=== PATIENT | female | born 1950 | race Caucasian/White ===

== ENCOUNTER 2022-01-18 12:27 | Observation (INO) | payer MEDICARE, SELFPAY ==
[2022-01-18] VITALS (10 sets, daily range): BP systolic 184–206; BP diastolic 70–95; PULSE 67–79; RESP 15–42; TEMP 36.4–36.8; O2SAT 96–100; BMI 35.5
--- NOTE | 2022-01-18 12:41 | DI.CT.S_ITS ---
PROCEDURE: CT STROKE INDICATIONS: left hand weakness and facial droop TECHNIQUE: Noncontrast 4.5 mm thick angled axial sections acquired from the foramen magnum to the vertex, with coronal reformats. For radiation dose reduction, the following was used: automated exposure control, adjustment of mA and/or kV according to patient size. COMPARISON: None. FINDINGS: Image quality: Excellent. CSF spaces: Basal cisterns are patent. No extra-axial fluid collections. The ventricles are symmetric in size and shape. Brain: No intracranial bleeds or masses. There is cerebral volume loss for age, with resultant ventricular and sulcal prominence. There are periventricular and deep white matter chronic small vessel ischemic changes. There is intracranial internal carotid artery atherosclerosis. Skull and face: Calvarium and visualized facial bones appear intact, without suspicious lesions. Sinuses: There is complete opacification of the right maxillary sinus. Scattered ethmoid sinus mucosal thickening. Remainder of the paranasal sinuses appear clear. Mastoid air cells are well-aerated. IMPRESSION: 1. CT head without acute intracranial abnormalities or acute calvarial fractures. 2. Age-related senescent changes and sequela of chronic small vessel ischemic disease. 3. Right maxillary and scattered ethmoid sinus disease. Findings were discussed telephonically with Dr. Galicia at 1250hrs PST This study fulfills neurological imaging criteria for inclusion or exclusion of acute stroke therapies based on available published neurological guidelines. Dictated by: Hussein Meyer M.D. on 01/18/2022 at 12:47 Approved by: Hussein Meyer M.D. on 01/18/2022 at 12:50
--- NOTE | 2022-01-18 12:50 | DI.CT.S_ITS ---
PROCEDURE: CT ANGIO HEAD AND NECK INDICATIONS: left hand weakness and facial droop TECHNIQUE: After the administration of intravenous contrast, 1 mm thick sections acquired from the aortic arch through the [place]. Post-contrast 4.5 mm thick sections then re-acquired from the foramen magnum to the vertex. 3-dimensional nxzdtiu-iffofemoq-oprkjgcrfl (MIP) and/or volume rendering reformats were acquired of the central intracranial vasculature and neck separately. For radiation dose reduction, the following was used: automated exposure control, adjustment of mA and/or kV according to patient size. COMPARISON: [facility], CT, CT STROKE, 01/18/2022, 12:43. FINDINGS: Image quality: Excellent. BRAIN: The ventricular system and cortical sulci demonstrate atrophy, consistent for the patient's stated age. There are areas of hypodensity within the periventricular and subcortical white matter. There is no acute intra-or extra axial fluid collection. No acute hemorrhage, mass lesion or midline shift. Brainstem is unremarkable. Globes are symmetrical. Sinuses demonstrate occlusion of the right maxillary sinus. Osseous structures are intact. HEAD CT ANGIOGRAPHY: Anterior circulation: Intracranial internal carotid arteries are normal in size and flow. The flow within the paired anterior cerebral arteries is normal and symmetric. The flow within the middle cerebral arteries is normal and symmetric. The anterior communicating artery is seen. No aneurysms are seen. Posterior circulation: There is a slight left vertebral artery dominance. Visualized portions of the vertebral arteries join to form a normal appearing basilar artery. Calcifications are noted within the V4 segment of the vertebral arteries bilaterally with approximate 50% stenosis. Flow within the posterior cerebral arteries is normal and symmetric. No aneurysms are seen. NECK CT ANGIOGRAPHY: The origins of the left and right common and external carotid arteries demonstrate no areas of hemodynamically significant stenosis, vascular occlusion or aneurysmal dilation. There is approximately 40-50% narrowing at the origin of the left internal carotid artery. Origins of the left and right vertebral arteries demonstrate no areas of hemodynamically significant stenosis, vascular occlusion or aneurysmal dilation. Aortic arch demonstrates conventional anatomy. Limited, visualized portions of the subclavian vasculature are unremarkable. The right thyroid lobe is markedly enlarged with areas of low attenuation and calcification. No priors are available for comparison. IMPRESSION: 1. No acute intracranial process. 2. Moderate atrophy and chronic microvascular ischemic changes. 3. No areas of hemodynamically significant stenosis, vascular occlusion or aneurysmal dilation within the anterior circulation. 4. Approximate 50% narrowing in the V4 segment of the vertebral arteries bilaterally secondary to scattered calcifications. 5. 40-50% narrowing at the origin of the left internal carotid artery. 6. Enlargement heterogeneous appearance of the right thyroid lobe. No priors are available for comparison. Thyroid ultrasound is recommended for further evaluation. Any quantitative measurements of stenosis were performed using NASCET criteria. Dictated by: Carmen Wagner M.D. on 01/18/2022 at 13:29 Approved by: Carmen Wagner M.D. on 01/18/2022 at 13:36
[2022-01-18 13:01] LABS: Add Manual Diff / Slide Review NO; Basophils Absolute Auto 100 /uL (0-100); Basophils Percent Auto 1.1 % (0-2); Eosinophils Absolute Auto 100 /uL (0-450); Eosinophils Percent Auto 1.3 % (2-4); Hematocrit 39.1 % (36-46); Hemoglobin 12.7 g/dL (12.0-16.0); Lymphocytes Absolute Auto 3000 /uL (1100-4500); Lymphocytes Percent Auto 31.6 % (25-40); Mean Corpuscular HGB Conc 32.5 % (30-36); Mean Corpuscular Hemoglobin 28.3 PG (26-34); Monocytes Absolute Auto 700 /uL (0-900); Monocytes Percent Auto 6.9 % (3-14); Neutrophils Absolute Auto 5700 /uL (1500-7000); Neutrophils Percent Auto 59.1 % (50-75); Platelet Count 256 X10^3/uL (150-400); Red Cell Distribution Width 14.2 % (11.6-14.8); White Blood Cell Count 9.6 X10^3/uL (4.5-11.0)
[2022-01-18 13:09] LABS: INR 1.1 (0.9-1.3); Prothrombin Time 12.2 SECONDS (10.1-12.7)
[2022-01-18 13:11] LABS: PTT Partial Thromboplastin Tim 27 SECONDS (26.4-36.2)
--- NOTE | 2022-01-18 14:02 | ED_ITS ---
HPI - Neuro Symptoms/Deficit General Chief Complaint: Neuro Symptoms/Deficit Stated Complaint: SPEECH SLURED/RT. HAND WEAK Time Seen by Provider: 01/18/22 12:38 Source: patient Mode of arrival: Ambulatory History of Present Illness HPI Narrative: Rest pain repair via a 71-year-old female history of hypertension diabetes, TIA presenting today with left-sided hand weakness. She was walking the dog when suddenly she dropped only she was unable to open the door. She had a slight headache as well. No facial droop or difficulty speaking. No leg weakness. Last known well was 1145. Related Data Home Medications Medication Instructions Recorded Confirmed atorvastatin 40 mg tablet 40 mg PO BEDTIME cholesterol 01/18/22 01/18/22 glimepiride 2 mg tablet 2 mg PO DAILY blood sugar control 01/18/22 01/18/22 lisinopril 30 mg tablet 30 mg PO DAILY blood pressure 01/18/22 01/18/22 metformin 1,000 mg tablet 1,000 mg PO BID 01/18/22 01/18/22 sertraline 25 mg tablet 25 mg PO DAILY anxiety 01/18/22 01/18/22 spironolactone 25 mg tablet 25 mg PO DAILY blood pressure 01/18/22 01/18/22 Allergies Allergy/AdvReac Type Severity Reaction Status Date / Time No Known Drug Allergies Allergy Verified 01/18/22 12:35 Review of Systems Review of Systems Narrative: GENERAL: Denies chills, fatigue, malaise, fever, sweats, travel HEENT: Denies sinus pain, ear pain, sore throat, difficulty swallowing, neck pain RESPIRATORY: Denies dyspnea, cough, wheezing, hemoptysis, sputum. CARDIOVASCULAR: Denies chest pain, palpitations, orthopnea, edema GASTROINTESTINAL: Denies nausea, vomiting, abdominal pain, diarrhea, constipation, melena. : Denies dysuria, frequency, incontinence, hematuria, urinary retention, flank pain. MUSCULOSKELETAL: Denies weakness, joint pain, or bony pain SKIN: No rash, no erythema, no pruritus NEUROLOGIC: See HPI PSYCHIATRIC: No concerning psychosocial issues. 12 point review of systems is negative except for those stated above and HPI Patient History Medical History Depression Diabetes mellitus (~2011) Endometrial cancer (~2007) Hypercholesteremia Hypertension Melanoma (~2014) Neuropathy Surgical History H/O: hysterectomy History of left hip replacement (~2008) Family History (Updated 01/18/22 @ 18:33 by Simon Singh DO) Mother Cancer Father Cancer Brother CVA (cerebral vascular accident) Social History household members: spouse Smoking Status: Never smoker alcohol intake: current Smoking Status: Unknown if ever smoked alcohol intake frequency: holidays/special occasions only Substance Use Type: does not use Exam Initial Vital Signs Initial Vital Signs: Vital Signs Temperature 97.7 F 01/18/22 12:34 Pulse Rate 79 01/18/22 12:34 Respiratory Rate 15 01/18/22 12:34 Blood Pressure 197/95 H 01/18/22 12:34 Pulse Oximetry 97 01/18/22 12:34 Oxygen Delivery Method 01/18/22 12:34 GENERAL: Alert pleasant 71-year-old female and in no acute distress. HEENT: Head atraumatic,EOMI, pupils reactive, face symmetric, moist mucous membranes CARDIOVASCULAR: Regular rate and rhythm without murmurs, rubs or gallops. RESPIRATORY: Breath sounds equal bilaterally, no wheezes rales or rhonchi. ABDOMEN: Soft, nontender. Normoactive bowel sounds all 4 quadrants. No g uarding or rebound. EXTREMITIES: Normal range of motion, no clubbing or edema. Neurovascularly inta ct NEUROLOGICAL: Alert and oriented x4.Normal gait and speech. Boats Renter strength he will bilaterally good mselot-jf-fojy no dysarthria or aphasia SKIN: Warm, dry, no laceration, no petechiae, no rashes or lesions. Scores NIH Stroke Scale Level of Conciousness: Alert, keenly responsive Ask month/age: Answers both questions correctly. Open/close eyes, close hand: Performs both tasks correctly Best gaze horizontal: Normal Visual sosa: No visual loss Facial palsy: Normal symetrical movement Left arm drift: No drift for full 10 sec Right arm drift: No drift for full 10 sec Left leg drift: No drift for full 5 sec Right leg drift: No drift for full 5 sec Limb ataxia: Absent Sensory on face/arms/legs: Normal, no sensory loss Best language: No aphasia, normal Dysarthria: Normal Extinction or inattention: No abnormality Total NIH Stroke scale score: 0 Course Orders Ordered: ED Orders 01/18/22 12:41 CT Stroke Stat 01/18/22 12:50 CT angio head and neck Stat 01/18/22 12:58 Complete Blood Count AUTO DIFF Stat Comprehensive Metabolic Panel Stat Partial Thromboplastin Time Stat Prothrombin Time INR Stat Troponin & CK Cardiac Panel Stat 01/18/22 14:12 Urine Drug Screen, Rapid Stat 01/18/22 14:21 EKG-12 Lead Stat Acetaminophen (Acetaminophen 325 Mg Tablet) 975 mg PO Q8H PRN PRN Reason: Pain, Mild (1-3) Amlodipine Besylate (Amlodipine 5 Mg Tablet) 10 mg PO NOW ONE Stop: 01/18/22 19:34 Amlodipine Besylate (Amlodipine 5 Mg Tablet) 10 mg PO DAILY [facility] Aspirin (Aspirin Ec 81 Mg Tablet) 81 mg PO DAILY [facility] Atorvastatin Calcium (Atorvastatin 20 Mg Tablet) 40 mg PO BEDTIME [facility] Clopidogrel Bisulfate (Clopidogrel 75 Mg Tablet) 300 mg PO NOW ONE Stop: 01/18/22 19:34 Clopidogrel Bisulfate (Clopidogrel 75 Mg Tablet) 75 mg PO DAILY [facility] Dextrose (Dextrose 50 % In Water 25 Gm/50 Ml Syringe) 25 gm IV PRN PRN PRN Reason: Hypoglycemia Insulin Human Lispro (Insulin Lispro 100 Unit/Ml 3ml Vial) 0 unit SUBCUT ACHS CLEM; Protocol Lisinopril (Lisinopril 10 Mg Tablet) 30 mg PO DAILY [facility] Ondansetron HCl (Ondansetron 4 Mg/2 Ml Inj) 4 mg IV Q8HR PRN PRN Reason: Nausea And Vomiting Sertraline HCl (Sertraline 50 Mg Tablet) 25 mg PO DAILY [facility] Sodium Chloride (Sodium Chloride 0.9% Flush) 10 ml IV PRN PRN PRN Reason: Flush Sodium Chloride (Sodium Chloride 0.9% Flush) 10 ml IV BID [facility] Spironolactone (Spironolactone 25 Mg Tablet) 25 mg PO DAILY [facility] Discontinued Medications Aspirin (Aspirin 81 Mg Chew Tab) 324 mg PO NOW ONE Stop: 01/18/22 14:20 Last Admin: 01/18/22 14:38 Dose: 324 mg Documented By: NR Sodium Chloride (Normal Saline 0.9%) 1,000 mls @ 150 mls/hr IV CONT CLEM Last Infusion: 01/18/22 14:49 Dose: 0 mls/hr Documented By: Admin: 01/18/22 14:39 Dose: 150 mls/hr Documented By: LEEANNA Vital Signs Vital signs: Vital Signs - 8 hr 01/18/22 13:20 01/18/22 13:22 01/18/22 13:22 Pulse Rate 70 70 Respiratory Rate 21 26 H Blood Pressure 200/91 H Pulse Oximetry 96 98 01/18/22 13:30 01/18/22 13:30 01/18/22 14:00 Pulse Rate 67 68 Respiratory Rate 27 H 31 H Blood Pressure 201/87 H Pulse Oximetry 96 97 01/18/22 14:05 01/18/22 14:05 Pulse Rate 71 Respiratory Rate 42 H Blood Pressure 192/86 H Pulse Oximetry 97 MDM - Neuro Symptoms/Deficit Lab Data Result diagrams: 01/18/22 12:58 01/18/22 19:10 Labs: Lab Results 01/18/22 01/18/22 01/18/22 Range/Units 12:58 12:58 12:58 WBC 9.6 (4.5-11.0) X10^3/uL RBC 4.50 (4.0-5.2) X10^6/uL Hgb 12.7 (12.0-16.0) g/dL Hct 39.1 (36-46) % MCV 87.0 (80-100) fL MCH 28.3 (26-34) PG MCHC 32.5 (30-36) % RDW 14.2 (11.6-14.8) % Plt Count 256 (150-400) X10^3/uL Neut % (Auto) 59.1 (50-75) % Lymph % (Auto) 31.6 (25-40) % Andrew % (Auto) 6.9 (3-14) % Eos % (Auto) 1.3 L (2-4) % Baso % (Auto) 1.1 (0-2) % Neut # (Auto) 5700 (0334-9557) /uL Lymph # (Auto) 3000 (0213-4761) /uL Andrew # (Auto) 700 (0-900) /uL Eos # (Auto) 100 (0-450) /uL Baso # (Auto) 100 (0-100) /uL PT 12.2 (10.1-12.7) SECONDS INR 1.1 (0.9-1.3) APTT 27 (26.4-36.2) SECONDS Sodium 138 (137-145) mmol/L Potassium TNP Chloride 102 (98-107) mmol/L Carbon Dioxide 25 (22-32) mmol/L BUN 22 H (7-17) mg/dL Creatinine 0.95 (0.52-1.04) mg/dL Estimated GFR > 60 (>60) mL/min BUN/Creatinine Ratio 23.2 H (6-22) Glucose 121 H (80-110) mg/dL Calcium 9.0 (8.4-10.2) mg/dL Total Bilirubin 1.0 (0.2-1.3) mg/dL AST TNP ALT 14 (<35) IU/L Alkaline Phosphatase TNP Total Creatine Kinase 58 (30-135) U/L CK-MB (CK-2) TNP CK-MB (CK-2) Rel Index TNP Troponin I < 0.012 (0.01-0.034) ng/mL Total Protein TNP Albumin 4.3 (3.5-5.0) g/dL Globulin 4.5 H (1.7-4.1) g/dL Albumin/Globulin Ratio 1.0 (1.0-2.8) U Opiates 300ng/mL cut (Negative) Ur Oxycodone Screen (Negative) Urine Methadone Screen (Negative) Ur Barbiturates Screen (Negative) U Tricyclic Antidepress (Negative) Ur Phencyclidine Scrn (Negative) Ur Amphetamines Screen (Negative) U Methamphetamines Scrn (Negative) Ur MDMA Scrn (Ecstasy) (Negative) U Benzodiazepines Scrn (Negative) Urine Cocaine Screen (Negative) U Marijuana (THC) Screen (Negative) 01/18/22 Range/Units 14:12 WBC (4.5-11.0) X10^3/uL RBC (4.0-5.2) X10^6/uL Hgb (12.0-16.0) g/dL Hct (36-46) % MCV (80-100) fL MCH (26-34) PG MCHC (30-36) % RDW (11.6-14.8) % Plt Count (150-400) X10^3/uL Neut % (Auto) (50-75) % Lymph % (Auto) (25-40) % Andrew % (Auto) (3-14) % Eos % (Auto) (2-4) % Baso % (Auto) (0-2) % Neut # (Auto) (2565-3687) /uL Lymph # (Auto) (4024-5500) /uL Andrew # (Auto) (0-900) /uL Eos # (Auto) (0-450) /uL Baso # (Auto) (0-100) /uL PT (10.1-12.7) SECONDS INR (0.9-1.3) APTT (26.4-36.2) SECONDS Sodium (137-145) mmol/L Potassium Chloride (98-107) mmol/L Carbon Dioxide (22-32) mmol/L BUN (7-17) mg/dL Creatinine (0.52-1.04) mg/dL Estimated GFR (>60) mL/min BUN/Creatinine Ratio (6-22) Glucose (80-110) mg/dL Calcium (8.4-10.2) mg/dL Total Bilirubin (0.2-1.3) mg/dL AST ALT (<35) IU/L Alkaline Phosphatase Total Creatine Kinase (30-135) U/L CK-MB (CK-2) CK-MB (CK-2) Rel Index Troponin I (0.01-0.034) ng/mL Total Protein Albumin (3.5-5.0) g/dL Globulin (1.7-4.1) g/dL Albumin/Globulin Ratio (1.0-2.8) U Opiates 300ng/mL cut Negative (Negative) Ur Oxycodone Screen Negative (Negative) Urine Methadone Screen Negative (Negative) Ur Barbiturates Screen Negative (Negative) U Tricyclic Antidepress Negative (Negative) Ur Phencyclidine Scrn Negative (Negative) Ur Amphetamines Screen Negative (Negative) U Methamphetamines Scrn Negative (Negative) Ur MDMA Scrn (Ecstasy) Negative (Negative) U Benzodiazepines Scrn Negative (Negative) Urine Cocaine Screen Negative (Negative) U Marijuana (THC) Screen Negative (Negative) Point of Care Testing Glucose POC [address] scan - head: Radiologist's Impression: [address] [address] [address] Scan Report Signed Patient: Lyndsey Gregg MR#: [id number] : 1950 Acct:[id number] Age/Sex: 71 / F Date of Service: 01/18/22 Loc: ED Accession Number: [id number] ?? Procedure: CT Stroke Ordering Provider: Elida Galicia D.O. PROCEDURE:? CT STROKE ? INDICATIONS:? left hand weakness and facial droop ? TECHNIQUE:? Noncontrast 4.5 mm thick angled axial sections acquired from the foramen magnum to the vertex, with coronal reformats.? For radiation dose reduction, the following was used:? automated exposure control, adjustment of mA and/or kV according to patient size.? ? COMPARISON:? None. ? FINDINGS:? Image quality:? Excellent.? ? CSF spaces:? Basal cisterns are patent.? No extra-axial fluid collections.? The ventricles are symmetric in size and shape.? ? Brain:? No intracranial bleeds or masses.? There is cerebral volume loss for age, with resultant ventricular and sulcal prominence.? There are periventricular and deep white matter chronic small vessel ischemic changes.? There is intracranial internal carotid artery atherosclerosis.? ? Skull and face:? Calvarium and visualized facial bones appear intact, without suspicious lesions.? ? Sinuses:? There is complete opacification of the right maxillary sinus.? Scattered ethmoid sinus mucosal thickening. Remainder of the paranasal sinuses appear clear. Mastoid air cells are well-aerated. ? ? IMPRESSION:? 1. CT head without acute intracranial abnormalities or acute calvarial fractures. ? 2. Age-related senescent changes and sequela of chronic small vessel ischemic disease. ? 3. Right maxillary and scattered ethmoid sinus disease.? ? Findings were discussed telephonically with Dr. Galicia at 1250hrs PST ? This study fulfills neurological imaging criteria for inclusion or exclusion of acute stroke therapies based on available published neurological guidelines.? ? ? Dictated by: Hussein Meyer M.D. on 01/18/2022 at 12:47? CTA - brain/neck: Radiologist's Impression: CT Scan Report Signed Patient: Lyndsey Gregg MR#: [id number] : 1950 Acct:[id number] Age/Sex: 71 / F Date of Service: 01/18/22 Loc: ED Accession Number: [id number] ?? Procedure: CT angio head and neck Ordering Provider: Elida Galicia D.O. PROCEDURE:? CT ANGIO HEAD AND NECK ? INDICATIONS:? left hand weakness and facial droop ? TECHNIQUE:? After the administration of intravenous contrast, 1 mm thick sections acquired from the aortic arch through the [place].? Post-contrast 4.5 mm thick sections then re-acquired from the foramen magnum to the vertex.? 3-dimensional qhpckja-cyznukkhu-wbgxckysog (MIP) and/or volume rendering reformats were acquired of the central intracranial vasculature and neck separately. For radiation dose reduction, the following was used:? automated exposure control, adjustment of mA and/or kV according to patient size.? ? COMPARISON:? [facility], CT, CT STROKE, 01/18/2022, 12:43. ? FINDINGS:? Image quality:? Excellent.? ? BRAIN:? The ventricular system and cortical sulci demonstrate atrophy, consistent for the patient's stated age. There are areas of hypodensity within the periventricular and subcortical white matter.? There is no acute intra-or extra axial fluid collection. No acute hemorrhage, mass lesion or midline shift. Brainstem is unremarkable. Globes are symmetrical. Sinuses demonstrate occlusion of the right maxillary sinus.? Osseous structures are intact. ? HEAD CT ANGIOGRAPHY:? Anterior circulation:? Intracranial internal carotid arteries are normal in size and flow.? The flow within the paired anterior cerebral arteries is normal and symmetric.? The flow within the middle cerebral arteries is normal and symmetric.? The anterior communicating artery is seen.? No aneurysms are seen.? ? Posterior circulation:? There is a slight left vertebral artery dominance.? Visualized portions of the vertebral arteries join to form a normal appearing basilar artery.? Calcifications are noted within the V4 segment of the vertebral arteries bilaterally with approximate 50% stenosis.? Flow within the posterior cerebral arteries is normal and symmetric.? No aneurysms are seen.? ? NECK CT ANGIOGRAPHY:? The origins of the left and right common and external carotid arteries demonstrate no areas of hemodynamically significant stenosis, vascular occlusion or aneurysmal dilation. ?There is approximately 40-50% narrowing at the origin of the left internal carotid artery.? Origins of the left and right vertebral arteries demonstrate no areas of hemodynamically significant stenosis, vascular occlusion or aneurysmal dilation. Aortic arch demonstrates conventional anatomy. Limited, visualized portions of the subclavian vasculature are unremarkable. ? The right thyroid lobe is markedly enlarged with areas of low attenuation and calcification.? No priors are available for comparison. ? IMPRESSION:? ? 1. No acute intracranial process. ? 2. Moderate atrophy and chronic microvascular ischemic changes. ? 3. No areas of hemodynamically significant stenosis, vascular occlusion or aneurysmal dilation within the anterior circulation. ? 4. Approximate 50% narrowing in the V4 segment of the vertebral arteries bilaterally secondary to scattered calcifications.? ? 5. 40-50% narrowing at the origin of the left internal carotid artery. ? 6. Enlargement heterogeneous appearance of the right thyroid lobe.? No priors are available for comparison.? Thyroid ultrasound is recommended for further evaluation.? ? Any quantitative measurements of stenosis were performed using NASCET criteria.? ? ? Dictated by: Carmen Wagner M.D. on 01/18/2022 at 13:29 ? ? ECG Data Interpretation: Normal sinus rhythm rate 69 MT interval 190 QRS [address] changes or T- wave inversions MDM Narrative Medical decision making narrative: Patient's symptoms have improved significantly. She is no longer a tPA candidate. However she does have a history of a TIA she has multiple risk factors symptoms are most concerning for TIA. Dr. Tiwari primary except patient. Discharge Plan Departure Patient Disposition: Admitted as Observation Clinical Impression: Transient cerebral ischemia Admit Date/Time: 01/18/22 14:37 Admit Provider: Simon Singh
[2022-01-18 14:34] LABS: Ur Creatinine Normal (Normal); Ur Specific Gravity Normal (Normal); Urine pH Normal (Normal)
[2022-01-18 14:35] LABS: UR Morphine/Opiate cutoff 300 Negative (Negative); Urine Amphetamines Negative (Negative); Urine Barbiturates Negative (Negative); Urine Benzodiazepines Negative (Negative); Urine Cocaine Negative (Negative); Urine MDMA Negative (Negative); Urine Methadone Negative (Negative); Urine Methamphetamines Negative (Negative); Urine Oxycodone Negative (Negative); Urine Phencyclidine Negative (Negative); Urine Tetrahydrocannabinol Negative (Negative); Urine Tricyclic Antidepressant Negative (Negative)
[2022-01-18] MEDS: ASPIRIN 81 MG CHEW TAB 324 MG PO (14:38)
[2022-01-18] MEDS: SODIUM CHLORIDE 0.9% 1,000 ML 150 ML IV (14:39)
--- NOTE | 2022-01-18 15:17 | DI.MRI.S_ITS ---
PROCEDURE: MR HEAD/BRAIN WO CON INDICATIONS: hand weakness now resolved, poss TIA TECHNIQUE: Non-contrast axial T1 spin echo, axial T2 fast spin echo, sagittal and axial FLAIR, coronal T2 fast spin echo, axial gradient echo, axial diffusion and ADC through the brain. COMPARISON: None. FINDINGS: Image quality: Excellent. CSF spaces: Ventricles appear symmetric in size and shape. Basal cisterns are patent. No extra-axial fluid collections. Brain: No intracranial bleeds or mass effects. There is cerebral volume loss for age. There are periventricular and deep white matter chronic small vessel ischemic changes. Brainstem appears normal. Diffusion-weighted images show no acute ischemic insults. No chronic ischemic insults. Normal intravascular flow voids are present. Skull and face: Calvarial bone marrow is normal in signal. Orbits are normal. Sinuses: The right maxillary sinus has mucosal thickening and is filled with inspissated secretions. The remaining paranasal sinuses are well aerated. IMPRESSION: 1. No acute intracranial abnormality. No acute ischemia. 2. Right maxillary sinus disease with inspissated secretions and mucosal thickening. 3. Cerebral volume loss and small vessel ischemic changes. Dictated by: Santos Garcia M.D. on 01/18/2022 at 16:20 Approved by: Santos Garcia M.D. on 01/18/2022 at 16:24
--- NOTE | 2022-01-18 15:17 | PC.NURSE ---
Addendum entered by Suellen Lewis R.N. 01/18/22 19:42: continuing admission note: patient arrived from ED via stretcher, greeted by this RN and TECHNOLOGY STRATEGIST. patient a/o, able to conversate clearly, denies any problems w/ vision, mobility. patient explained to staff how she was walking her dog earlier today around 11 am and was unable to speak coherantly, and noticed her left cheek under her eye was twitching. her UE was dangling, and all above deficits were resolved by the time she arrived to the ED. she is accompanied by her Mat. they are from [facility], and currently vacationing in their RV. Dr hughes here to admit patient, tele applied. SL, CXR and MRI completed. swallow screen was completed in ED. patient is a diabetic, and her A1c is 7. tele is NSR. ambulates w/ sba to/ from bathroom. bed alarm is on. call light w/in reach. report to NOC. Original Note: admit to room 222 at 1500, dx TIA
[2022-01-18 15:36] LABS: COVID19 -Nasal RAPID Negative (Negative)
--- NOTE | 2022-01-18 18:32 | PM.HP.1 ---
History of Present Illness History of Present Illness Date Patient Seen: 01/18/22 Time Patient Seen: 18:37 Chief complaint: SPEECH SLURED/RT. HAND WEAK Narrative: This is a 71 year old female with PMH of prior TIA, DM, HTN, obesity who presented with sudden onset of L handed weakness that started at approx. 11:45 AM. She is currently staying at an park, visiting from [place]. States that she woke up in her usual state of health and was walking her dog this afternoon when she dropped her dog's leash out of her left hand and could not close it. She also noticed some facial tingling but denied any S and was able to walk. She was walking back to her trailer to grab her while this was occurring, right speaking to him but to him she is not making any actual words and was slurring her speech. This lasted for approximately 20 minutes before her symptoms completely resolved. She denies any recent fever, chills, chest pain, palpitations, shortness of breath, cough, abdominal pain, nausea, vomiting, visual changes, lower extremity edema. In the emergency room, the patient was hypertensive but the remainder of her vital signs were unremarkable. Stroke was called, initial CT of her head was unremarkable and did not show any evidence of hemorrhage. Given resolution of her symptoms tPA was not given. She was admitted for further management and evaluation of probable TIA. Patient History Medical History Depression Diabetes mellitus (~2011) Endometrial cancer (~2007) Hypercholesteremia Hypertension Melanoma (~2014) Neuropathy Surgical History H/O: hysterectomy History of left hip replacement (~2008) Family & Social History Family History (Updated 01/18/22 @ 18:33 by Simon Singh DO) Mother Cancer Father Cancer Brother CVA (cerebral vascular accident) Social History: household members spouse Prior Living Arrangements RV Safety & Behavioral: Feels Safe in Current Yes Environment Been Physically Hurt or No Threatened By a Person Tobacco & Substance use: Smoking Status Never smoker alcohol intake current alcohol intake frequency holiday/special occasion Substance Use Type does not use Meds Home Medications and Allergies Home Medications Medication Instructions Recorded Confirmed Type atorvastatin 40 mg tablet 40 mg PO BEDTIME cholesterol 01/18/22 01/18/22 History glimepiride 2 mg tablet 2 mg PO DAILY blood sugar control 01/18/22 01/18/22 History lisinopril 30 mg tablet 30 mg PO DAILY blood pressure 01/18/22 01/18/22 History metformin 1,000 mg tablet 1,000 mg PO BID 01/18/22 01/18/22 History sertraline 25 mg tablet 25 mg PO DAILY anxiety 01/18/22 01/18/22 History spironolactone 25 mg tablet 25 mg PO DAILY blood pressure 01/18/22 01/18/22 History Allergies Allergy/AdvReac Type Severity Reaction Status Date / Time No Known Drug Allergies Allergy Verified 01/18/22 12:35 Review of Systems Review of Systems Narrative: All other systems reviewed with the patient and are negative unless otherwise stated. Exam Vital Signs (past 8 hours): - 01/18/22 12:34 01/18/22 13:20 01/18/22 13:22 Temperature 97.7 F Pulse Rate 79 70 70 Respiratory Rate 15 21 26 H Blood Pressure 197/95 H Pulse Oximetry 97 96 98 Oxygen Delivery Method Room Air Oxygen Flow Rate 01/18/22 13:22 01/18/22 13:30 01/18/22 13:30 Temperature Pulse Rate 67 Respiratory Rate 27 H Blood Pressure 200/91 H 201/87 H Pulse Oximetry 96 Oxygen Delivery Method Oxygen Flow Rate 01/18/22 14:00 01/18/22 14:05 01/18/22 14:05 Temperature Pulse Rate 68 71 Respiratory Rate 31 H 42 H Blood Pressure 192/86 H Pulse Oximetry 97 97 Oxygen Delivery Method Oxygen Flow Rate 01/18/22 16:12 01/18/22 14:30 Temperature 97.6 F Pulse Rate 76 Respiratory Rate 21 Blood Pressure 184/91 H Pulse Oximetry 99 99 Oxygen Delivery Method Room Air Oxygen Flow Rate 0 0 Oxygen Delivery Method Room Air Oxygen Flow Rate 0 Narrative Exam Narrative: General:? Patient is well developed and well nourished, in no distress at this time. Obese with BMI 35.5 HEENT:? Normocephalic, atraumatic, extraocular muscles intact, oral pharynx is clear and mucous membranes are moist. Neck: supple and symmetric, trachea is midline, no cervical adenopathy. Negative for JVD Chest:? Normal AP diameter and contour without kyphoscoliosis, no tachypnea, equal chest rise bilaterally. Lungs:? CTA b/l no wheezing rhonchi or rales. Cardio:?RRR, 3/6 systolic murmur loudest L 2nd intercostal space, no rubs or gallops. Abdomen: S NT ND. No CVA tenderness. Musculoskeletal:? Muscle strength and tone are equal within normal limits, no deformity. Extremities: No edema or joint effusions. No cyanosis or clubbing. Skin:? Pale,? Warm to touch,dry and intact without rashes, ulcerations or petechiae.? Neuro:? Alert and orientated x3,?sensation diminished in bilateral LE, R > L, chronic. Mild facial asymmetry on the left but reportedly chronic as well. Rapid alternating movements smooth and coordinated. FTN testing smooth and accurate. Psych:? Patient has a well-kept appearance, appropriate affect, mental status attitude thought context and judgment are appropriate for age. Objective ECG Impression: NSR. No evidence of acute ischemia as interpreted by me. Labs Result Diagrams: 01/18/22 12:58 01/18/22 12:58 Labs: Laboratory Results - last 24 hr 01/18/22 01/18/22 01/18/22 12:58 12:58 14:12 WBC 9.6 RBC 4.50 Hgb 12.7 Hct 39.1 MCV 87.0 MCH 28.3 MCHC 32.5 RDW 14.2 Plt Count 256 Neut % (Auto) 59.1 Lymph % (Auto) 31.6 [place] % (Auto) 6.9 Eos % (Auto) 1.3 L Baso % (Auto) 1.1 Neut # (Auto) 5700 Lymph # (Auto) 3000 [place] # (Auto) 700 Eos # (Auto) 100 Baso # (Auto) 100 PT 12.2 INR 1.1 APTT 27 U Opiates 300ng/mL cut Negative Ur Oxycodone Screen Negative Urine Methadone Screen Negative Ur Barbiturates Screen Negative U Tricyclic Antidepress Negative Ur Phencyclidine Scrn Negative Ur Amphetamines Screen Negative U Methamphetamines Scrn Negative Ur MDMA Scrn (Ecstasy) Negative U Benzodiazepines Scrn Negative Urine Cocaine Screen Negative U Marijuana (THC) Screen Negative SARS-CoV-2 (PCR) 01/18/22 14:48 WBC RBC Hgb Hct MCV MCH MCHC RDW Plt Count Neut % (Auto) Lymph % (Auto) [place] % (Auto) Eos % (Auto) Baso % (Auto) Neut # (Auto) Lymph # (Auto) [place] # (Auto) Eos # (Auto) Baso # (Auto) PT INR APTT U Opiates 300ng/mL cut Ur Oxycodone Screen Urine Methadone Screen Ur Barbiturates Screen U Tricyclic Antidepress Ur Phencyclidine Scrn Ur Amphetamines Screen U Methamphetamines Scrn Ur MDMA Scrn (Ecstasy) U Benzodiazepines Scrn Urine Cocaine Screen U Marijuana (THC) Screen SARS-CoV-2 (PCR) Negative Assessment & Plan Assessment & Plan narrative: This is a 71 year old female with PMH of prior TIA, DM, HTN, obesity who presented with sudden onset of L handed weakness, now resolved. Admitted with a TIA. 1. TIA - TTE ordered, continue telemetry. MRI performed and was negative for acute ischemia. - plavix load given ABCD2 score, continue asa and plavix 75 mg daily for 21 days after load. - continue home statin, already on lipitor 40 mg, consider increase to 80 depending on lipid panel. - check A1c, lipid, TSH - given baseline neuro status currently, no benefit at this time for PT/OT/Speech evaluations. - no obvious chemistry abnormalities, but specimen hemolyzed and repeat pending. 2. DM - FS ACHS with sliding scale. 3. HTN - will need to add another medication, she has been hypertensive since the ER. Will trial amlodipine 10 mg tonight and add on to AM medications. - patient took her BP medications this AM. Continue lisinopril and aldactone. 4. obesity - contributes to patient's underlying vascular risk and increases morbidity and mortality. 5. 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 Code: DNR, surrogate decision maker is her spouse DVT: low risk, ambulatory Dispo: Admitted under observation, probably home in the AM I have utilized all available immediate resources to obtain, update, or review the patient's current medications. Time Spent With Patient Critical Care time: I spent a total of [] minutes of critical care time on this patient's care today; this time is exclusive of procedural time. Quality VTE Deep Vein Thrombosis/Pulmonary Embolism Present on Admission: No MIPS - Admit I confirm the patient?s Advance Care Plan is present, Code status is documented, Surrogate decision maker is in patient?s record [If Yes, STOP here]: Yes
--- NOTE | 2022-01-18 18:33 | DI.ECHO.S_ITS ---
[facility] +---------+ : : [address] : : : : [id number] : : : : Phone: [phone]+ Echocardiogram Report + + :Name: HELENE MURPHY Study Date: 01/19/2022 Height: 66 in : :[facility] ReadingLocation: Weight: 220 lb : : Gender: Female BSA: 2.1 m2 : :: 1950 Age: 71 yrs BP: 162/77 mmHg: :Reason For Study: TIA : :Ordering Physician: PARKER, : :COLLINS RODRÍGUEZ Performed By: Isa Beasley : :Referring: COLLINS CANALES : + + Interpretation Summary The ejection fraction is estimated to be 60-65%. Diastolic parameters suggest a relaxation abnormality of the left ventricle, consistent with probable normal filling pressures. The right ventricle is normal in size and function. The left atrium is mildly dilated. No significant valvular disease. No prior studies available for comparison. Procedure: A two-dimensional transthoracic echocardiogram with color flow and Doppler was performed. The study quality was technically adequate. A contrast injection of Definity was performed to improve assessment of LV function. The patient was in sinus rhythm with heart rates between 65-74 bpm during the exam. Left Ventricle: The left ventricle is normal in size. Concentric remodeling RWT 0.49. The ejection fraction is estimated to be 60-65%. Left ventricular wall motion is normal. Diastolic parameters suggest a relaxation abnormality of the left ventricle, consistent with probable normal filling pressures. Right Ventricle: The right ventricle is normal in size and function. Atria: The left atrium is mildly dilated. Right atrial size is normal. There is no Doppler evidence for an interatrial shunt. Mitral Valve: There is mild mitral annular calcification. There is trace mitral regurgitation. Aortic Valve: The aortic valve is trileaflet. The aortic valve opens well. There is no hemodynamically significant valvular aortic stenosis. There is mild aortic regurgitation. Tricuspid Valve: The tricuspid valve is normal in structure and function. There is trace tricuspid regurgitation. Pulmonic Valve: The pulmonic valve leaflets are thin and pliable; valve motion is normal. There is trace pulmonic regurgitation. Great Vessels: The aortic root is normal size. The dimensions of the ascending aorta are normal. The IVC is of normal diameter and collapses greater than 50% with a sniff. This suggests a low right atrial pressure of 3 mm Hg. Pericardium/ Pleura There is no pericardial effusion. There is no pleural effusion. MMode/2D Measurements & Calculations LVIDd: 4.1 cm LVOT diam: 2.1 cm LVIDs: 2.6 cm Ao root diam: 3.2 cm FS: 36.5 % Ao Arch Diam (Prox Trans): 3.5 cm EPSS: 0.37 cm IVSd: 1.1 cm LVPWd: 1.0 cm LV desai. diameter/BSA (cm/m^2): 2.0 LV sys. diameter/BSA (cm/m^2): 1.3 LA A2 area: 27.7 cm2 RA long axis: 5.2 cm LA A4 area: 21.8 cm2 RA area: 16.3 cm2 LA length (vol): 6.0 cm RA vol: 43.5 ml LA vol: 84.9 ml RA : 20.9 ml/m2 LA vol index: 40.7 ml/m2 IVC diam: 1.7 cm RVD1 (basal): 3.4 cm RVD2 (mid): 2.8 cm TAPSE: 2.1 cm Doppler Measurements & Calculations Ao V2 max: 115.9 cm/sec LVOT Max Hernando: 106.9 cm/sec Ao V2 mean: 82.5 cm/sec LV V1 max P.6 mmHg Ao max P.4 mmHg LV V1 VTI: 22.1 cm Ao mean P.0 mmHg NNEKA(I,D): 2.9 cm2 Ao V2 VTI: 24.8 cm NNEKA(V,D): 3.1 cm2 sev ratio: 0.89 NNEKA indexed to BSA (cm^2/m^2): 1.4 MV E max hernando: 72.8 cm/sec PA V2 max: 136.1 cm/sec MV A max hernando: 83.2 cm/sec PA V2 mean: 84.1 cm/sec MV E/A: 0.87 PA mean P.2 mmHg Med Peak E' Hernando: 4.5 cm/sec PA Accel Time: 0.10 sec E/E' med: 16.1 Lat Peak E' Hernando: 7.0 cm/sec E/E' lat: 10.3 E/e' average: 13.2 MV dec time: 0.27 sec SV(LVOT): 73.1 ml Reading Physician:ANAIS
[2022-01-18 19:09] LABS: Alanine Aminotransferase 14 IU/L (<35); Albumin 4.3 g/dL (3.5-5.0); BUN Creatinine Ratio 23.2 (6-22); Blood Urea Nitrogen 22 mg/dL (7-17); Carbon Dioxide 25 mmol/L (22-32); Chloride 102 mmol/L (98-107); Creatine Kinase 58 U/L (30-135); Estimated Glomerular Filt Rate > 60 mL/min (>60); Globulin 4.5 g/dL (1.7-4.1); Glucose 121 mg/dL (80-110); Sodium 138 mmol/L (137-145)
[2022-01-18 19:20] LABS: HEMOLYSIS 201 (0-50); Troponin I < 0.012 ng/mL (0.01-0.034)
[2022-01-18 20:08] LABS: Alanine Aminotransferase 12 IU/L (<35); Albumin 3.6 g/dL (3.5-5.0); Alkaline Phosphatase 122 U/L (38-126); Aspartate Aminotransferase 20 IU/L (14-36); BUN Creatinine Ratio 17.6 (6-22); Bilirubin Total 0.2 mg/dL (0.2-1.3); Blood Urea Nitrogen 19 mg/dL (7-17); Calcium 8.6 mg/dL (8.4-10.2); Carbon Dioxide 30 mmol/L (22-32); Chloride 102 mmol/L (98-107); Estimated Glomerular Filt Rate 55 mL/min (>60); Globulin 3.7 g/dL (1.7-4.1); Glucose 144 mg/dL (80-110); HEMOLYSIS < 15 (0-50); Potassium 4.6 mmol/L (3.4-5.1); Sodium 138 mmol/L (137-145); Total Protein 7.3 g/dL (6.3-8.2)
[2022-01-18] MEDS: AMLODIPINE 5 MG TABLET 10 MG PO (20:48)
[2022-01-18] MEDS: CLOPIDOGREL 75 MG TABLET 300 MG PO (20:48)
[2022-01-18] MEDS: ATORVASTATIN 20 MG TABLET 40 MG PO (20:49)
[2022-01-18] MEDS: SODIUM CHLORIDE 0.9% FLUSH 10 ML IV (20:49)
--- NOTE | 2022-01-18 21:29 | PC.NURSE ---
Patient is alert and oriented; NIH = 0. Breath sounds CTA with RA sat of 97%. HRR w/telemetry reading of SR. BP elevated at 203/70 and was given now dose of Amlodipine. Denies nausea. BT present and abdomen is soft. Denies dysuria, frequency or urgency and states she is continent of [place]. Is able to turn herself in bed. Has chronic bilateral LE neuropathy which makes patient have some difficulty with walking so instructed to call for staff assist when getting out of bed. Fall risk score is moderate and bed alarm is activated. Denies pain.
[2022-01-19 01:26] VITALS: BP 177/82; PULSE 69; RESP 18; TEMP 36.8; O2SAT 95
[2022-01-19] MEDS: ACETAMINOPHEN 325 MG TABLET 975 MG PO (04:38)
[2022-01-19 05:43] LABS: Add Manual Diff / Slide Review NO; Basophils Absolute Auto 0 /uL (0-100); Basophils Percent Auto 0.4 % (0-2); Eosinophils Absolute Auto 200 /uL (0-450); Hematocrit 37.8 % (36-46); Hemoglobin 12.7 g/dL (12.0-16.0); Lymphocytes Absolute Auto 2600 /uL (1100-4500); Lymphocytes Percent Auto 29.6 % (25-40); Mean Corpuscular HGB Conc 33.6 % (30-36); Mean Corpuscular Volume 86.3 fL (80-100); Monocytes Absolute Auto 500 /uL (0-900); Monocytes Percent Auto 5.5 % (3-14); Neutrophils Absolute Auto 5500 /uL (1500-7000); Neutrophils Percent Auto 62.5 % (50-75); Platelet Count 232 X10^3/uL (150-400); Red Blood Cell Count 4.38 X10^6/uL (4.0-5.2); Red Cell Distribution Width 14.4 % (11.6-14.8); White Blood Cell Count 8.9 X10^3/uL (4.5-11.0)
[2022-01-19 05:47] LABS: BUN Creatinine Ratio 17.5 (6-22); Blood Urea Nitrogen 18 mg/dL (7-17); Carbon Dioxide 29 mmol/L (22-32); Chloride 102 mmol/L (98-107); Cholesterol 179 mg/dL (140-199); Estimated Glomerular Filt Rate 58 mL/min (>60); Glucose 134 mg/dL (80-110); HDL Cholesterol 43 mg/dL (40-60); HEMOLYSIS < 15 (0-50); LDL Cholesterol Calculated 113 mg/dL (<100); Magnesium 1.8 mg/dL (1.6-2.3); Potassium 4.5 mmol/L (3.4-5.1); Sodium 139 mmol/L (137-145); Triglycerides 116 mg/dL (35-150)
[2022-01-19 05:56] VITALS: BP 162/77; PULSE 67; RESP 17; TEMP 36.3; O2SAT 97
[2022-01-19 06:11] LABS: Hemoglobin A1C% w Est Avg Glu 7.4 % (4.0-6.0)
[2022-01-19 06:17] LABS: TSH w/ Reflex to FT4 0.26 uIU/mL (0.47-4.68)
[2022-01-19 07:50] VITALS: BP 174/80; PULSE 70; RESP 16; TEMP 36.4; O2SAT 95
[2022-01-19 09:03] VITALS: BP 174/80
[2022-01-19] MEDS: SPIRONOLACTONE 25 MG TABLET PO (09:03)
[2022-01-19] MEDS: SERTRALINE 50 MG TABLET 25 MG PO (09:03)
[2022-01-19] MEDS: ASPIRIN EC 81 MG TABLET PO (09:03)
[2022-01-19] MEDS: lisinopriL 10 MG TABLET 30 MG PO (09:03)
[2022-01-19] MEDS: CLOPIDOGREL 75 MG TABLET PO (09:03)
[2022-01-19] MEDS: SODIUM CHLORIDE 0.9% FLUSH 10 ML IV (09:04)
[2022-01-19] MEDS: AMLODIPINE 5 MG TABLET 10 MG PO (09:04)
--- NOTE | 2022-01-19 09:33 | P.DS_ITS ---
History of Present Illness History of Present Illness Date Patient Seen: 01/19/22 Chief complaint: SPEECH SLURED/RT. HAND WEAK Narrative: This is a 71 year old female with PMH of prior TIA, DM, HTN, obesity who presented with sudden onset of L handed weakness that started at approx. 11:45 AM. She is [place] staying at an park, visiting from [place]. States that she woke up in her usual state of health and was walking her dog this afternoon when she dropped her dog's leash out of her left hand and could not close it. She also noticed some facial tingling but denied any S and was able to walk. She was walking back to her trailer to grab her while this was occurring, right speaking to him but to him she is not making any actual words and was slurring her speech. This lasted for approximately 20 minutes before her symptoms completely resolved. She denies any recent fever, chills, chest pain, palpitations, shortness of breath, cough, abdominal pain, nausea, v omiting, visual changes, lower extremity edema. In the emergency room, the patient was hypertensive but the remainder of her vital signs were unremarkable. Stroke was called, initial CT of her head was unremarkable and did not show any evidence of hemorrhage. Given resolution of her symptoms tPA was not given. She was admitted for further management and evaluation of probable TIA. Discharge Providers Provider Date of admission: 01/18/22 14:37 Discharge Date: 01/19/22 Discharge provider: Simon Singh DO Summary Hospital Course Discharge Diagnosis: 1. TIA 2. DM 3. HTN 4. obesity 5. Peripheral neuropathy Hospital Course: This is a 71 year old female with PMH of prior TIA, DM, HTN, obesity who presented with sudden onset of L handed weakness which resolved fairly quickly. She is admitted for further evaluation of a TIA. She was given aspirin and Plavix load in the emergency room / shortly after hospital admission given an elevated ABCD2 score. MRI was performed and was negative for an acute infarct. Echocardiogram showed supple mild diastolic dysfunction but no evidence of a PFO. Over the course of her stay she remained hypertensive and was started on amlodipine in addition to her home lisinopril and spironolactone. I recommend further follow-up with her primary care provider for further adjustments to her antihypertensive medications. Her atorvastatin was also increased from 40 mg to 80 mg given her elevated LDL. Patient should continue on Plavix for an additional 20 days after discharge, and then resume lifelong aspirin at 81 mg. Her A1c was controlled, and no changes to her diabetic medications are recommended. Patient was counseled on dietary changes with regards to her diabetes and obesity, which increases her risk of stroke in the future. Exam Vital Signs (past 8 hours): - 01/19/22 05:56 01/19/22 05:56 01/19/22 07:50 Temperature 97.3 F L 97.6 F Pulse Rate 67 70 Respiratory Rate 17 16 Blood Pressure 162/77 H 174/80 H Pulse Oximetry 97 97 95 Oxygen Delivery Method Room Air Oxygen Flow Rate 0 0 0 01/19/22 09:03 Temperature Pulse Rate Respiratory Rate Blood Pressure 174/80 H Pulse Oximetry Oxygen Delivery Method Oxygen Flow Rate Oxygen Delivery Method Room Air Oxygen Flow Rate 0 Narrative Exam Narrative: General:? Patient is well developed and well nourished, in no distress at this t sylvia. Obese with BMI 35.5 HEENT:? Normocephalic, atraumatic, extraocular muscles intact, oral pharynx is clear and mucous membranes are moist. Chest:? Normal AP diameter and contour without kyphoscoliosis, no tachypnea, equal chest rise bilaterally. Lungs:? CTA b/l no wheezing rhonchi or rales. Cardio:?RRR, 3/6 systolic murmur loudest L 2nd intercostal space, no rubs or gallops. Abdomen: S NT ND. Musculoskeletal:? Muscle strength and tone are equal within normal limits, no deformity. Extremities: No edema or joint effusions. No cyanosis or clubbing. Skin:? Pale,? Warm to touch,dry and intact without rashes, ulcerations or petechiae.? Neuro:? Alert and orientated x3,?sensation diminished in bilateral LE, R > L, chronic. Psych:? Patient has a well-kept appearance, appropriate affect, mental status attitude thought context and judgment are appropriate for age. Objective Labs Result Diagrams: 01/19/22 05:01 01/19/22 05:01 Labs: Laboratory Results - last 24 hr 01/18/22 01/18/22 01/18/22 12:58 12:58 12:58 WBC 9.6 RBC 4.50 Hgb 12.7 Hct 39.1 MCV 87.0 MCH 28.3 MCHC 32.5 RDW 14.2 Plt Count 256 Neut % (Auto) 59.1 Lymph % (Auto) 31.6 [place] % (Auto) 6.9 Eos % (Auto) 1.3 L Baso % (Auto) 1.1 Neut # (Auto) 5700 Lymph # (Auto) 3000 [place] # (Auto) 700 Eos # (Auto) 100 Baso # (Auto) 100 PT 12.2 INR 1.1 APTT 27 Sodium 138 Potassium TNP Chloride 102 Carbon Dioxide 25 BUN 22 H Creatinine 0.95 Estimated GFR > 60 BUN/Creatinine Ratio 23.2 H Glucose 121 H Hemoglobin A1c Calcium 9.0 Magnesium Total Bilirubin 1.0 AST TNP ALT 14 Alkaline Phosphatase TNP Total Creatine Kinase 58 CK-MB (CK-2) TNP CK-MB (CK-2) Rel Index TNP Troponin I < 0.012 Total Protein TNP Albumin 4.3 Globulin 4.5 H Albumin/Globulin Ratio 1.0 Triglycerides Cholesterol LDL Cholesterol, Calc HDL Cholesterol TSH Free T4 U Opiates 300ng/mL cut Ur Oxycodone Screen Urine Methadone Screen Ur Barbiturates Screen U Tricyclic Antidepress Ur Phencyclidine Scrn Ur Amphetamines Screen U Methamphetamines Scrn Ur MDMA Scrn (Ecstasy) U Benzodiazepines Scrn Urine Cocaine Screen U Marijuana (THC) Screen SARS-CoV-2 (PCR) 01/18/22 01/18/22 01/18/22 14:12 14:48 19:10 WBC RBC Hgb Hct MCV MCH MCHC RDW Plt Count Neut % (Auto) Lymph % (Auto) [place] % (Auto) Eos % (Auto) Baso % (Auto) Neut # (Auto) Lymph # (Auto) [place] # (Auto) Eos # (Auto) Baso # (Auto) PT INR APTT Sodium 138 Potassium 4.6 Chloride 102 Carbon Dioxide 30 BUN 19 H Creatinine 1.08 H Estimated GFR 55 L BUN/Creatinine Ratio 17.6 Glucose 144 H Hemoglobin A1c Calcium 8.6 Magnesium Total Bilirubin 0.2 AST 20 ALT 12 Alkaline Phosphatase 122 Total Creatine Kinase CK-MB (CK-2) CK-MB (CK-2) Rel Index Troponin I Total Protein 7.3 Albumin 3.6 Globulin 3.7 Albumin/Globulin Ratio 1.0 Triglycerides Cholesterol LDL Cholesterol, Calc HDL Cholesterol TSH Free T4 U Opiates 300ng/mL cut Negative Ur Oxycodone Screen Negative Urine Methadone Screen Negative Ur Barbiturates Screen Negative U Tricyclic Antidepress Negative Ur Phencyclidine Scrn Negative Ur Amphetamines Screen Negative U Methamphetamines Scrn Negative Ur MDMA Scrn (Ecstasy) Negative U Benzodiazepines Scrn Negative Urine Cocaine Screen Negative U Marijuana (THC) Screen Negative SARS-CoV-2 (PCR) Negative 01/19/22 01/19/22 01/19/22 05:01 05:01 05:01 WBC 8.9 RBC 4.38 Hgb 12.7 Hct 37.8 MCV 86.3 MCH 29.0 MCHC 33.6 RDW 14.4 Plt Count 232 Neut % (Auto) 62.5 Lymph % (Auto) 29.6 [place] % (Auto) 5.5 Eos % (Auto) 2.0 Baso % (Auto) 0.4 Neut # (Auto) 5500 Lymph # (Auto) 2600 [place] # (Auto) 500 Eos # (Auto) 200 Baso # (Auto) 0 PT INR APTT Sodium 139 Potassium 4.5 Chloride 102 Carbon Dioxide 29 BUN 18 H Creatinine 1.03 Estimated GFR 58 L BUN/Creatinine Ratio 17.5 Glucose 134 H Hemoglobin A1c 7.4 H Calcium 9.0 Magnesium 1.8 Total Bilirubin AST ALT Alkaline Phosphatase Total Creatine Kinase CK-MB (CK-2) CK-MB (CK-2) Rel Index Troponin I Total Protein Albumin Globulin Albumin/Globulin Ratio Triglycerides 116 Cholesterol 179 LDL Cholesterol, Calc 113 H HDL Cholesterol 43 TSH Free T4 U Opiates 300ng/mL cut Ur Oxycodone Screen Urine Methadone Screen Ur Barbiturates Screen U Tricyclic Antidepress Ur Phencyclidine Scrn Ur Amphetamines Screen U Methamphetamines Scrn Ur MDMA Scrn (Ecstasy) U Benzodiazepines Scrn Urine Cocaine Screen U Marijuana (THC) Screen SARS-CoV-2 (PCR) 01/19/22 05:01 WBC RBC Hgb Hct MCV MCH MCHC RDW Plt Count Neut % (Auto) Lymph % (Auto) [place] % (Auto) Eos % (Auto) Baso % (Auto) Neut # (Auto) Lymph # (Auto) [place] # (Auto) Eos # (Auto) Baso # (Auto) PT INR APTT Sodium Potassium Chloride Carbon Dioxide BUN Creatinine Estimated GFR BUN/Creatinine Ratio Glucose Hemoglobin A1c Calcium Magnesium Total Bilirubin AST ALT Alkaline Phosphatase Total Creatine Kinase CK-MB (CK-2) CK-MB (CK-2) Rel Index Troponin I Total Protein Albumin Globulin Albumin/Globulin Ratio Triglycerides Cholesterol LDL Cholesterol, Calc HDL Cholesterol TSH 0.26 L Free T4 1.20 U Opiates 300ng/mL cut Ur Oxycodone Screen Urine Methadone Screen Ur Barbiturates Screen U Tricyclic Antidepress Ur Phencyclidine Scrn Ur Amphetamines Screen U Methamphetamines Scrn Ur MDMA Scrn (Ecstasy) U Benzodiazepines Scrn Urine Cocaine Screen U Marijuana (THC) Screen SARS-CoV-2 (PCR) PFSH Medical History Depression Diabetes mellitus (~2011) Endometrial cancer (~2007) Hypercholesteremia Hypertension Melanoma (~2014) Neuropathy Surgical History H/O: hysterectomy History of left hip replacement (~2008) Family History (Updated 01/18/22 @ 18:33 by Simon Singh DO) Mother Cancer Father Cancer Brother CVA (cerebral vascular accident) Social History household members: spouse Smoking Status: Never smoker alcohol intake: current Discharge Plan Discharge Plan Patient Disposition: Home Provider Discharge Comment: You were admitted to the hospital with a TIA. MRI negative for a stroke and your symptoms resolved. Your BP is high, you were started on another medicine to lower your BP. Please follow up with your primary care provider when you return home. Your diabetes is controlled, A1c is in the 7s. You were also started on a temporary medication called clopidogrel to reduce your stroke risk in the near term. Discharge orders & Medications Prescriptions: New amlodipine 10 mg tablet 10 mg PO DAILY 30 Days Qty: 30 0RF atorvastatin 80 mg tablet 80 mg PO BEDTIME 30 Days Qty: 30 0RF clopidogrel 75 mg Tablet 75 mg PO DAILY 20 Days Qty: 20 0RF aspirin 81 mg Tablet,Delayed Release (Dr/Ec) 81 mg PO DAILY 30 Days Qty: 30 0RF Continued metformin 1,000 mg Tablet 1,000 mg PO BID sertraline 25 mg tablet 25 mg PO DAILY spironolactone 25 mg tablet 25 mg PO DAILY Label Comments: TAKE 1 TABLET BY MOUTH EVERY DAY lisinopril 30 mg tablet 30 mg PO DAILY glimepiride 2 mg tablet 2 mg PO DAILY Discontinued atorvastatin 40 mg tablet 40 mg PO BEDTIME Diet/Activity/Treatments Diet: Diet as Tolerated and Carb-consistent/Diabetic Activity: As tolerated Discharge Data Attending Provider: Simon Singh VTE Deep Vein Thrombosis/Pulmonary Embolism Present on Admission: No
[2022-01-19 10:00] VITALS: O2SAT 97
== END 2022-01-19 12:25 | disposition home or self-care (01) ==
LOC: ED 14:28 → AC 14:39
PROVIDERS: Admitting Provider Internal Medicine; Emergency Provider Emergency Medicine; Referring Provider Emergency Medicine; Visit Provider Internal Medicine
DX: R47.81 Slurred speech (principal); R53.1 Weakness; R29.700 NIHSS score 0; I10 Essential (primary) hypertension; E11.9 Type 2 diabetes mellitus without complications; Z86.73 Personal history of transient ischemic attack (TIA), and cerebral infarction without residual deficits; Z79.84 Long term (current) use of oral hypoglycemic drugs; G62.0 Drug-induced polyneuropathy; Z20.822 Contact with and (suspected) exposure to COVID-19
CPT/HCPCS: 36415; 70450; 70496; 70498; 70551; 80048; 80053; 80061; 80305; 82550; 82962; 83036; 83735; 84439; 84443; 84484; 85025; 85610; 85730; 87635; 93005; 99285; C9803; G0378; C8929; J1815; Q9957